=== PATIENT | female | born 1960 | race Asian ===

== ENCOUNTER → 2023-06-03 12:41 | Outpatient (CLI) | payer OTHER, SELFPAY ==
[2023-06-03 19:42] LABS: Add Manual Diff / Slide Review NO; Basophils Absolute Auto 0 /uL (0-100); Basophils Percent Auto 0.8 % (0-2); Eosinophils Absolute Auto 300 /uL (0-450); Eosinophils Percent Auto 4.7 % (2-4); Hemoglobin 13.8 g/dL (12.0-16.0); Lymphocytes Absolute Auto 1600 /uL (1100-4500); Lymphocytes Percent Auto 26.3 % (25-40); Mean Corpuscular HGB Conc 32.9 % (30-36); Mean Corpuscular Hemoglobin 27.6 PG (26-34); Mean Corpuscular Volume 84.1 fL (80-100); Monocytes Absolute Auto 400 /uL (0-900); Monocytes Percent Auto 7.3 % (3-14); Neutrophils Absolute Auto 3700 /uL (1500-7000); Neutrophils Percent Auto 60.9 % (50-75); Platelet Count 291 X10^3/uL (150-400); Red Cell Distribution Width 13.7 % (11.6-14.8); White Blood Cell Count 6.1 X10^3/uL (4.5-11.0)
[2023-06-03 19:46] LABS: Alanine Aminotransferase 35 IU/L (<35); Albumin 4.3 g/dL (3.5-5.0); Albumin Globulin Ratio 1.4 (1.0-2.8); Alkaline Phosphatase 58 U/L (38-126); Aspartate Aminotransferase 30 IU/L (14-36); BUN Creatinine Ratio 11.4 (6-22); Bilirubin Total 0.6 mg/dL (0.2-1.3); Blood Urea Nitrogen 8 mg/dL (7-17); Calcium 9.5 mg/dL (8.4-10.2); Carbon Dioxide 26 mmol/L (22-32); Chloride 107 mmol/L (98-107); Cholesterol 168 mg/dL (140-199); Estimated Glomerular Filt Rate > 60 mL/min (>60); Globulin 3.1 g/dL (1.7-4.1); Glucose 112 mg/dL (80-110); HDL Cholesterol 61 mg/dL (40-60); HEMOLYSIS < 15 (0-50); LDL Cholesterol Calculated 87 mg/dL (<100); Potassium 3.9 mmol/L (3.4-5.1); Sodium 140 mmol/L (137-145); Total Protein 7.4 g/dL (6.3-8.2); Triglycerides 100 mg/dL (35-150)
[2023-06-03 20:03] LABS: Follicle Stimulating Hormone 54.8 mIU/mL
[2023-06-03 20:17] LABS: TSH w/ Reflex to FT4 1.76 uIU/mL (0.47-4.68)
== END ==
PROVIDERS: PCP Family Medicine; Visit Provider Family Medicine
DX: N95.0 Postmenopausal bleeding (principal); Z13.6 Encounter for screening for cardiovascular disorders; Z13.1 Encounter for screening for diabetes mellitus
CPT/HCPCS: 80053; 80061; 83001; 84443; 85025

== ENCOUNTER → 2023-06-10 12:37 | Outpatient (CLI) | payer OTHER, SELFPAY ==
--- NOTE | 2023-06-10 12:39 | DI.US.S_ITS ---
LIMITED ULTRASOUND OF LEFT BREAST: 06/10/2023 CLINICAL: Intermittent pain in left breast. Comparison is made to exams dated: 06/10/2023 mammogram - [facility], 02/28/2019 mammogram - [facility], 08/27/2016 mammogram, 07/19/2014 mammogram, 07/14/2014 mammogram, and 07/20/2012 mammogram - [facility]. Color flow and real-time ultrasound of the left breast 9 o'clock, and retroareolar regions were performed on the areas of interest. Bishop scale images of the real-time examination were reviewed. IMPRESSION: NEGATIVE There is no sonographic evidence of malignancy. There is no mammographic or sonographic abnormality seen in the left breast to correspond with the pain, however, clinical followup is recommended. Return to annual mammogram screening schedule is recommended. This exam was interpreted at Station ID: [id number]. Electronically Signed By: Concepción Gill M.D. lk/:06/19/2023 12:03:36 letter sent: Clinical Evaluation Ultrasound BI-RADS: 1 Negative
--- NOTE | 2023-06-10 12:39 | DI.US.S_ITS ---
PROCEDURE: US PELVIC COMPLETE INDICATIONS: BLEEDING TECHNIQUE: Real-time scanning was performed of the pelvic organs, with image documentation. Additional endovaginal scanning was necessary due to incomplete visualization of the adnexal and endometrial structures by transabdominal scanning. COMPARISON: None. FINDINGS: Uterus: Uterus is vertically oriented and normal in size at 5.4 x 4.7 x 3.4 cm. The myometrium is heterogeneous in the endometrial stripe is indistinct. A subserosal parenchymal calcification is present in the left uterine fundus measuring 1.2 cm. The endometrium measures probably near 5 mm though is not well seen. Both in cyst present in the cervix. Ovaries: The right ovary well seen. The left ovary measures 2.8 x 1.8 x 1.5 cm, with a calculated ovarian volume of 4.0 cc. No suspicious ovarian mass. No adnexal masses are seen. Other: No pathologic free abdominal or pelvic fluid. IMPRESSION: Vertically oriented and heterogeneous uterus obscures good visualization of the endometrium for measurement. Consider pelvic MRI for further evaluation if there are ongoing symptoms. We strive to produce accurate, complete, and clear reports of imaging services. To assist us in improving patient care, this report was composed using standard report templates and voice recognition software. Therefore, it may contain abnormal punctuation, insertions and/or omissions. Occasional wrong-word or sound-alike substitutions may occur. Though we review the report and make efforts to correct it, we do recommend that the report be read carefully in proper context to recognize any text inaccuracies. Dictated by: Irene Castellanos M.D. on 06/10/2023 at 18:05 Approved by: Irene Castellanos M.D. on 06/10/2023 at 18:08
--- NOTE | 2023-06-10 12:39 | DI.MG.S_ITS ---
BILATERAL DIGITAL DIAGNOSTIC MAMMOGRAM 3D/2D: 06/10/2023 CLINICAL: Mastodynia. Comparison is made to exams dated: 02/28/2019 mammogram - [facility], 08/27/2016 mammogram, and 07/19/2014 mammogram - [facility]. Both breasts are heterogeneously dense, which may obscure small masses (category c / 51-75% glandular tissue). No significant masses, calcifications, or other findings are seen in either breast. IMPRESSION: INCOMPLETE: NEEDS ADDITIONAL IMAGING EVALUATION There is no mammographic abnormality seen in the left breast to correspond with the pain, however, targeted ultrasound of the left breast is recommended and will be performed immediately following this exam. Based on the Tyrer Cuzick model (a risk assessment model) the patient's lifetime risk is 14.6% and her 10 year risk is 6.4%. According to the ACR, ACS, and NCCN guidelines, an annual breast MRI exam along with mammogram is recommended if the patient's lifetime risk is 20% or greater. This exam was interpreted at Station ID: [id number]. NOTE: For mammograms, a report in lay terms will be sent to the patient. Approximately 15% of breast malignancies will not be visualized mammographically. In the management of a palpable breast mass, a negative mammogram must not discourage biopsy of a clinically suspicious lesion. Electronically Signed By: Concepción Gill M.D. lk/:06/10/2023 14:02:40 ACR BI-RADS Category 0: Incomplete 3340F
== END ==
LOC: MAMMO 12:38
PROVIDERS: PCP Family Medicine; Referring Provider Family Medicine; Visit Provider Family Medicine
DX: R92.2 Inconclusive mammogram (principal); N64.4 Mastodynia; R92.333 Mammographic heterogeneous density, bilateral breasts; N95.0 Postmenopausal bleeding
CPT/HCPCS: 76642; 76830; 76856; 77066; G0279

== ENCOUNTER → 2023-07-23 12:05 | Outpatient (CLI) | payer OTHER, SELFPAY ==
--- NOTE | 2023-07-23 13:00 | DI.MRI.S_ITS ---
PROCEDURE: MR PELVIS WO/W CON INDICATIONS: abnormal Ultrasound pelvis, post menopausal bleeding TECHNIQUE: Coronal HASTE, sagittal breath-hold T2 FSE; axial T1 FSE with and without fat saturation through the pelvis. Optional long- and short-axis uterine nonbreath-hold T2 FSE through the uterus. Sagittal or axial dynamic VIBE during administration of contrast. Post-contrast axial or coronal VIBE/2-D FLASH with fat saturation from the iliac crests to the symphysis. Optional diffusion weighted imaging and ADC may be performed. COMPARISON: [facility], , US PELVIC COMPLETE, 06/10/2023, 14:32. FINDINGS: Image quality: Diagnostic Lower abdomen: No bowel dilation. No pathologic ascites Bladder: Under distended Reproductive organs: Maximal endometrial diameter is 6 mm. No junctional zone thickening. There are nabothian cysts. The ovaries are nonenlarged bilaterally. Ill-defined enhancement of the endocervix, with preservation of the parametrium. Rectum: Unremarkable Vessels and lymph nodes: No pathologic lymph nodes by size criteria. No aneurysmal vessel identified Pelvic wall: Unremarkable Bones: Unremarkable. No acute or suspicious abnormality IMPRESSION: Maximal endometrial diameter is 6 mm, which is mildly thickened. In addition, there is ill-defined signal within the endocervix, without violation of the parametrium. Cervical nabothian cysts are also seen. In the setting of postmenopausal bleeding, consider direct visualization and possible sampling. Dictated by: Antonino Lenz M.D. on 07/23/2023 at 14:28 Approved by: Antonino Lenz M.D. on 07/23/2023 at 14:34
== END ==
PROVIDERS: PCP Family Medicine; Referring Provider Family Medicine; Visit Provider Family Medicine
DX: N95.0 Postmenopausal bleeding (principal); R93.89 Abnormal findings on diagnostic imaging of other specified body structures; N84.1 Polyp of cervix uteri; N88.8 Other specified noninflammatory disorders of cervix uteri
CPT/HCPCS: 72197; A9579

== ENCOUNTER 2023-10-30 09:27 | Day surgery (SDC) | payer BC, SELFPAY ==
[2023-10-30] VITALS (8 sets, daily range): BP systolic 129–142; BP diastolic 64–85; PULSE 80–89; RESP 12–18; TEMP 36.1–36.6; O2SAT 94–98; BMI 27.8
--- NOTE | 2023-10-30 | PATH_ITS ---
[facility] Accession Number: [id number] No. of containers..01 Tissue . 01 Material submitted: . endometrium - ENDOMETRIAL CONTENTS . 01 Diagnosis: ENDOMETRIAL CONTENTS, CURETTINGS: Fragment with features compatible with endometrial polyp, if imaging studies support. Background inactive endometrium. Negative for endometrial intraepithelial neoplasia and malignancy. MRV 11/04/2023 1537 Local . 01 Electronically signed: . Ronaldo Cronin MD, Pathologist NPI- [id number] . 01 Gross description: . Received in formalin, labeled with two patient identifiers and endometrial contents, are multiple levi to brown soft tissue fragments admixed with mucoid material aggregating to 2.5 x 2.1 x 0.6 cm. Filtered and submitted in cassette A1. ([id number]) /FRR 10/31/2023 1306 Local . 01 Pathologist provided ICD-10: N95.0, R93.89, N84.0 . 01 CPT . 954956 Specimen Comment: A courtesy copy of this report has been sent to [facility] Performed at: [address] [address], [place], [place] [id number] MD Bud Agrawal MD Phone: [phone]
[2023-10-30] MEDS: LACTATED RINGERS 1,000 ML 42 ML IV ×2 (10:19→11:30)
--- NOTE | 2023-10-30 11:13 | PM.PREOP ---
Pre-operative Note Interval Note History & Physical reviewed/Exam performed by Physician: Yes Changes to H&P: No H&P completed within 30 days and has changed as indicated here:: 10/30/23 ASA Class (for procedural sedation): II
--- NOTE | 2023-10-30 11:14 | PM.GYNHP.1 ---
History of Present Illness History of Present Illness Reason for admission: other (postmenopausal bleeding ) Narrative: Henna Mora is a 62 year old female who presents for scheduled procedure, planned hysteroscopy with possible polypectomy pending intraoperative findings, dilation and curettage. Pt denies any interval changes in personal health history and denies any interval bleeding since time of office encounter. 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 nicci, son is 25 safe tob: none etoh: not daily redness and itching with alcohol no substances occas cbd for sleep -- stopped MM: 2016 colonoscopy: -- normal PAP: 2015- periods stopped: 2019, then the 4 months above. none in a couple months PSHX: appy PMHX: allergies, asthma since childhood- no inhale meds: chondroitin zyrtec nightly Left breast pain for about 3 yrs denies breast mass/lump 05/2023 Meds Home Medications and Allergies Home Medications Medication Instructions Recorded Confirmed Type cetirizine 10 mg capsule (Zyrtec) 10 mg PO BEDTIME PRN Allergic 05/08/23 10/30/23 History Reaction azelastine 137 mcg (0.1 %) nasal 1 spray intranasal BID allergies 05/28/23 10/30/23 Rx spray aerosol #30 mL glucosamine sulfate 500 mg tablet 500 mg PO DAILY 05/28/23 10/30/23 History (Glucosamine) ipratropium bromide 21 mcg (0.03 2 spray intranasal TID PRN allergy 05/28/23 10/30/23 Rx %) nasal spray symptoms #30 mL albuterol sulfate 90 mcg/actuation 2 puff inhalation Q6H PRN 06/18/23 10/30/23 Rx aerosol inhaler shortness of breath/wheezing. only if needed #8.5 grams fluticasone propionate 110 1 puff inhalation BID asthma 06/18/23 10/30/23 Rx mcg/actuation HFA aerosol inhaler prevention . take every day even if well. #12 grams bupropion HCl 150 mg 24 hr tablet, 300 mg (2 x 150 mg) PO QAM #60 tabs 10/15/23 10/30/23 Rx extended release Allergies Allergy/AdvReac Type Severity Reaction Status Date / Time Sulfa (Sulfonamide Allergy Mild Rash Verified 10/30/23 09:45 Antibiotics) Review of Systems Review of Systems ROS: Yes All systems reviewed with the patient and are negative except as otherwise documented Exam Vital Signs (past 8 hours): - 10/30/23 10:19 Temperature 96.9 F L Pulse Rate 83 Respiratory Rate 17 Blood Pressure 142/85 H Pulse Oximetry 98 Oxygen Delivery Method Room Air Oxygen Delivery Method Room Air Const General: cooperative and healthy appearing Nutritional Appearance: overweight Orientation: alert, awake and oriented x3 HENMT Head: normal to inspection Resp Effort & Inspection: normal respiratory effort Cardio Pulses: normal peripheral pulses Other: deferred Skin General: no rashes or lesions noted Neuro General: patient alert, patient awake and patient oriented x3 Extrem General: normal to inspection Psych Mental Status: mental status grossly normal Judgment: judgment good Assessment & Plan Assessment and plan (1) Postmenopausal bleeding: Status: Acute Plan 62yo postmenopausal female presents for scheduled procedure, hysteroscopy with possible polypectomy pending intraoperative findings, dilation and curettage Proceed to OR routine postop as scheduled Time-Based Coding :: [TOTAL MINUTES] spent with patient and on the chart (including review of chart, obtaining history, exam, reviewing outside data, placing orders, documenting exam and treatment plan, and counseling patient) on [DATE].
--- NOTE | 2023-10-30 12:06 | SUR.OPER ---
Lithotomy on padded OR bed, head on pillow, arms secured on padded arm boards at <90 degrees abduction. Legs secured in padded yellow fins stirrups.
[2023-10-30] MEDS: ACETAMINOPHEN IV 1,000 MG/100 ML VIAL 400 MG IV (12:09)
[2023-10-30] MEDS: hydrOXYzine 50 MG/ML INJ 25 MG IM (12:56)
--- NOTE | 2023-10-30 13:08 | PM.OP.1 ---
Operative Date/Time/Diagnoses Date of procedure: 10/30/23 Time of procedure: 11:45 Pre-op diagnosis: postmenopausal bleeding, suspected endometrial polyp Post-op diagnosis: same Procedure & Clinicians Procedure: hysteroscopy, polypectomy, dilation and curettage Same procedure as scheduled: Yes Indications: recurrent postmenopausal bleeding, abnormal pelvic MRI Surgeon: Antonella Rivero Click Yes if Unassisted: Yes Anesthesia Type: General Operative Notes Findings: normal external female genitalia, perineum and anus, vagina and cervix endometrial cavity visualized with large posterior polyp bilateral ostia visualized Closure Type: not applicable Specimen(s): other (endometrial contents ) Estimated Blood Loss (mL): 5 Procedure in detail: Pt was taken to the operating room, transferred to OR table and anesthesia was induced with placement of LMA.? Pt had her legs placed in Cirilo stirrups and an exam under anesthesia was performed. The patient was prepped and draped in a sterile fashion.? A time out was performed. ?The bladder was emptied via straight catheter in sterile fashion.? A sterile speculum was inserted into the vagina.? The cervix was visualized and grasped anteriorly using a single tooth tenaculum.? The uterus sounded to 7cm and the cervical os was serially dilated using Moreno dilators up to 17f to allow for passage of the hysteroscope.? The 5mm 0 degree hysteroscope was then inserted into the uterus with findings as noted.? The small Myosure device was introduced and the endometrium including visualized pathology was fractionally resected under direct visualization.The hysteroscope was removed and the uterus was sharply curetted until a gritty texture was noted throughout.? The tenaculum was removed and hemostasis was noted at insertion sites.? The speculum was removed and hemostasis was again noted to be excellent.? The patient then had her legs taken out of stirrups.? The patient tolerated the procedure well and without difficulty.? The patient was awakened from anesthesia and taken to PACU in stable condition. Fluid deficit <200mL ? Complications: none Post-operative Condition: stable Disposition: PACU Plan for aftercare: dc to home routine postoperative f/u as scheduled
--- NOTE | 2023-10-30 13:25 | SUR.PHASEII ---
Patient up to the bathroom and voided without difficulty.
== END 2023-10-30 13:45 | disposition home or self-care (01) ==
PROVIDERS: PCP Family Medicine; Referring Provider Obstetrics & Gynecology; Visit Provider Obstetrics & Gynecology
PROC: 0UDB8ZZ Extraction of Endometrium, Via Natural or Artificial Opening Endoscopic (ICD-10-PCS; CPT 58558; principal; 2023-10-30 11:00)
DX: N84.0 Polyp of corpus uteri (principal); N95.0 Postmenopausal bleeding
CPT/HCPCS: 58558; J0136; J1100; J2405; J2704; J3010; J3410

== ENCOUNTER → 2024-07-22 12:34 | Outpatient (CLI) | payer OTHER, SELFPAY ==
--- NOTE | 2024-07-22 12:35 | DI.MG.S_ITS ---
MM screening mammo BI: 07/22/2024. BI-RADS: 1 CLINICAL: 63-year old female for bilateral screening mammogram. Tyrer-Cuzick lifetime risk of 11.6%. No personal or first-degree family history of breast cancer. PRIOR EXAMS 06/10/2023, 02/28/2019. MAMMOGRAPHY TECHNIQUE: 2D and 3D (tomosynthesis) digital mammographic views obtained, with additional images as needed for full coverage. Current study was also evaluated with a Computer Aided Detection (CAD) system. DENSITY C. The breasts are heterogeneously dense, which may obscure small masses. MAMMOGRAPHY FINDINGS Bilateral: No suspicious mass, asymmetry, microcalcification, or other abnormality seen. IMPRESSION: * No evidence of malignancy. RECOMMENDATIONS Bilateral * Annual screening mammography. OVERALL ASSESSMENT CATEGORY BI-RADS-1: Negative. The [employer] recommends annual screening mammography beginning at age 40 for women with average risk of breast cancer. ELECTRONICALLY SIGNED: Benigno Diego M.D. on 07/22/2024 at 05:37:01 PM PT Interpreting Station ID: [id number]
== END ==
PROVIDERS: PCP Family Medicine; Referring Provider Family Medicine; Visit Provider Family Medicine
DX: Z12.31 Encounter for screening mammogram for malignant neoplasm of breast (principal); R92.333 Mammographic heterogeneous density, bilateral breasts
CPT/HCPCS: 77063; 77067

== ENCOUNTER → 2024-09-12 09:23 | Outpatient (CLI) | payer OTHER, SELFPAY ==
[2024-09-12 19:28] LABS: Hematocrit 40.9 % (36-46); Hemoglobin 13.6 g/dL (12.0-16.0); Mean Corpuscular HGB Conc 33.4 % (30-36); Mean Corpuscular Hemoglobin 27.9 PG (26-34); Mean Corpuscular Volume 83.7 fL (80-100); Platelet Count 261 X10^3/uL (150-400)
[2024-09-12 19:34] LABS: Hemoglobin A1C% w Est Avg Glu 5.6 % (4.0-6.0)
[2024-09-12 19:35] LABS: HEMOLYSIS < 15 (0-50); Iron 121 ug/dL (37-170)
[2024-09-12 19:42] LABS: Alanine Aminotransferase 21 IU/L (<35); Albumin 4.3 g/dL (3.5-5.0); Albumin Globulin Ratio 1.5 (1.0-2.8); Alkaline Phosphatase 61 U/L (38-126); Blood Urea Nitrogen 12 mg/dL (7-17); Calcium 9.6 mg/dL (8.4-10.2); Carbon Dioxide 29 mmol/L (22-32); Chloride 102 mmol/L (98-107); Cholesterol 169 mg/dL (140-199); Estimated Glomerular Filt Rate > 60 mL/min (>60); Globulin 2.8 g/dL (1.7-4.1); Glucose 91 mg/dL (70-99); HDL Cholesterol 48 mg/dL (40-60); HEMOLYSIS < 15 (0-50); Potassium 4.1 mmol/L (3.4-5.1); Sodium 139 mmol/L (137-145); Total Protein 7.1 g/dL (6.3-8.2); Triglycerides 79 mg/dL (35-150)
[2024-09-12 19:53] LABS: Percent Iron Saturation 35 % (15-50); Total Iron Binding Capacity 344 ug/dL (265-497); Transferrin 270 mg/dL (206-381)
[2024-09-12 20:09] LABS: Thyroid Stimulating Hormone 1.97 uIU/mL (0.47-4.68)
[2024-09-12 20:14] LABS: Ferritin 59 ng/mL (11-264)
[2024-09-15 04:08] LABS: ANA Screen, IFA Negative (.)
== END ==
PROVIDERS: PCP Family Medicine; Visit Provider Family Medicine
DX: F41.9 Anxiety disorder, unspecified (principal); R03.0 Elevated blood-pressure reading, without diagnosis of hypertension; R73.01 Impaired fasting glucose; G25.0 Essential tremor; R74.8 Abnormal levels of other serum enzymes; Z13.1 Encounter for screening for diabetes mellitus; Z13.6 Encounter for screening for cardiovascular disorders; M25.50 Pain in unspecified joint
CPT/HCPCS: 80053; 80061; 82728; 83036; 83540; 83550; 84443; 85027; 85651; 86038; 86140; 86200